=== PATIENT | male | born 1970 | race Two or more races ===

== ENCOUNTER 2024-12-16 10:38 | Emergency (ER) | payer MEDICAID, OTHER ==
[~2024-12-16] VITALS: Ht 182.9 cm; Wt 93.0 kg
--- NOTE | 2024-12-16 12:23 | DVH ---
EXAM: XY CHEST PORTABLE HISTORY: syncope COMPARISON: None TECHNIQUE: Portable AP views of the chest were performed. FINDINGS: No pneumothorax, consolidative infiltrates, or pulmonary edema. There is mild central perib ronchial thickening. The heart is not enlarged. There is moderate to severe thoracic degenerative dis c disease. No fractures are identified about the bony thorax. IMPRESSION: Mild reactive airways disease. The lungs are otherwise clear.
[2024-12-16 12:36] LABS: Basophils # (auto) 0 10 ^3/uL (0-0.2); Basophils % (auto) 0.1 % (0.0-2.0); Eosinophils # (auto) 0 10 ^3/uL (0-0.8); Hematocrit 45.2 % (41.0-53.0); Hemoglobin 15.5 g/dL (13.5-17.5); Lymphocytes # (auto) 0.7 10 ^3/uL (0.4-5.4); Lymphocytes % (auto) 7.8 % (10.0-50.0); Mean Corpuscular Hemoglobin 30.8 pg (28.0-32.0); Mean Corpuscular Hgb Conc. 34.3 g/dL (32.0-36.0); Mean Corpuscular Volume 89.8 fL (80.0-100.0); Monocytes # (auto) 0.5 10 ^3/uL (0-1.3); Monocytes % (auto) 5.2 % (0.0-12.0); Neutrophils # (auto) 7.7 10 ^3/uL (1.6-8.6); Neutrophils % (auto) 86.9 % (37.0-80.0); Nucleated Red Blood Cells % 0.1 %; Platelet Count (auto) 214 10^3/uL (140-450); Red Blood Cells 5.04 10^6/uL (4.5-5.90); Red Cell Distribution Width 12.9 % (11.8-14.3); White Blood Cell 8.8 10^3/uL (4.4-10.8)
[2024-12-16 12:40] VITALS: PULSE 89; RESP 16; O2SAT 96
[2024-12-16 12:43] LABS: Chloride 99 mmol/L (98-107); Potassium 4.1 mmol/L (3.5-5.1); Sodium 137 mmol/L (136-145)
[2024-12-16 12:44] LABS: Anion Gap 9 (5-15); Calcium 10.3 mg/dL (8.7-10.4); Carbon Dioxide 29 mmol/L (20-31)
--- NOTE | 2024-12-16 12:45 | DVH ---
EXAM: CT HEAD WITHOUT CONTRAST HISTORY: syncope COMPARISON: None TECHNIQUE: Axial images were obtained and reformatted in coronal and sagittal planes. All CT scans at this medical facility are performed using dose modulation techniques as appropriate t o a performed exam including the following: Automated exposure control was utilized; adjustment of th e MA and/or KV according to patient size; and use of iterative reconstruction technique. CT Dose: CTDI volume is 53 mGy. Dose-length product is 864 mGy*cm FINDINGS: Supratentorial Region: No evidence for large acute territorial ischemia. No intracranial hemorrhage is noted. Posterior Fossa: No acute abnormality. Brainstem: Unremarkable. Sellar/Suprasellar Region: Unremarkable. Ventricles, Cisterns, Sulci: Severely dilated occipital horn of the right lateral ventricle. The 3rd ventricle is mildly distended. A 5 x 2.5 cm porencephalic arachnoid cyst noted in the left frontal p arasagittal region. Corpus callosum is absent. Orbits: Unremarkable. Paranasal Sinuses: Unremarkable. Mastoid Air Cells: Unremarkable. Vasculature: Unremarkable. Bones/Soft Tissues: No acute abnormality. Other: None. IMPRESSION: 1. No acute intracranial process. 2. 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
[2024-12-16 12:49] LABS: Blood Urea Nitrogen 10 mg/dL (9-23)
[2024-12-16 12:52] LABS: Glucose 326 mg/dL (74-106)
[2024-12-16 13:00] LABS: Urine Bacteria None Seen /hpf (None Seen)
[2024-12-16 13:12] LABS: Urine Blood Negative /uL (Negative); Urine Clarity Turbid (Clear); Urine Color Orange (Yellow); Urine Hyaline Cast MANY /lpf (0 - 2); Urine Mucus MODERATE (None Seen); Urine Protein, UAD 2+ (Negative); Urine Specific Gravity 1.037 (1.001-1.035); Urine Squamous Epithelial Cell FEW /hpf (<5); Urine Urobilinogen 4 mg/dL (Negative); Urine WBC 5 /HPF (0-3); Urine pH 5.5 (5.0-9.0)
--- NOTE | 2024-12-16 14:40 | ED.PDOC ---
HPI (NEURO) HPI Comments 54y M who presents to the ED for chief complaint of near syncope. Pt states he was using restroom earlier this afternoon and states he got up after his bowel movement and states he felt weak and lightheaded and felt he was going to pass out. Pt states he had was able to catch himself from passing out and afterwards told his spouse who told him to come to the ED for further evaluation. Pt states in the ED, he had 2 packets of oatmeal today and afterwards had to use restroom. Pt states he felt abdominal discomfort after eating, which prompted him to try to use the bathroom to have a bowel movement, during which he was straining. PT now in the ED, is alert and oriented x 4 and able to answer all questions. Pt denies nausea, vomiting, diarrhea, fever, chills, cough, headache, dizziness, chest pain or shortness of breath. Pt states now in the ED, he has had this near syncopal in AUG 2024 but states was dealing with norovirus at time. Pt states he otherwise has noted history of DM, epilepsy and states due to insurance problems he has been noncompliant with his DM Meds. Pt states he had EKG done earlier this week and also had brain MRI scheduled for tomorrow. Pt states he has history of brain cysts and epilepsy since childhood but states no interventions have been done. Pt states he has neurology and PCP appt January 2025 to help re establish care for his epilepsy and DM. Pt otherwise denies any other symptoms at this time. Chief Complaint: Syncope Time Seen by MD: 14:36 Primary Care Provider: ? Reviewed Notes: Medications, Allergies Information Source: Patient Mode of Arrival: Ambulatory Brought in by: self Past Medical History PAST MEDICAL HISTORY: DM, Seizures Past Medical History (Other): brain cyst Surgical History: Denies all surgeries Family History Family History: Reviewed,noncontributory to illness Social History Smoker: Non-Smoker Alcohol: Denies ETOH Use Drugs: Denies Drug Use Lives In: Home Constitutional: reports: malaise, weakness; denies: chills, diaphoresis, fatigue, fever, sweats, others EENTM: denies: blurred vision, double vision, ear bleeding, ear discharge, ear drainage, ear pain, ear ringing, eye pain, eye redness, hearing loss, mouth pain, mouth swelling, nasal discharge, nose bleeding, nose congestion, nose pain, photophobia, tearing, throat pain, throat swelling, voice changes, others Respiratory: denies: cough, hemoptysis, orthopnea, SOB at rest, shortness of breath, SOB with excertion, stridor, wheezing, others Cardiovascular: denies: chest pain, dizzy spells, diaphoresis, Dyspnea on exertion, edema, irregular heart beat, left arm pain, lightheadedness, palpitations, PND, syncope, others Gastrointestinal: reports: abdominal pain; denies: abdomen distended, blood streaked bowels, constipated, diarrhea, dysphagia, difficulty swallowing, hematemesis, melena, nausea, poor appetite, poor fluid intake, rectal bleeding, rectal pain, vomiting, others Genitourinary: denies: burning, dysuria, flank pain, frequency, hematuria, incontinence, penile discharge, penile sore, pain, testicle pain, testicle swelling, urgency, others Neurological: reports: others (near syncope); denies: dizziness, fainting, headache, left sided numbness, left sided weakness, numbness, paresthesia, pre- existing deficit, right sided numbness, right sided weakness, seizure, speech problems, tingling, tremors, weakness Musculoskeletal: denies: back pain, gout, joint pain, joint swelling, muscle pain, muscle stiffness, neck pain, others Integumetry: denies: bruises, change in color, change in hair/nails, dryness, laceration, lesions, lumps, rash, wounds, others Allergic/Immunocompromised: denies: Difficulty Healing, Frequent Infections, Hives, Itching, others Hematologic/Lymphatic: denies: anemia, blood clots, easy bleeding, easy bruising, swollen glands, others Endocrine: denies: excessive hunger, excessive sweating, excessive thirst, excessive urination, flushing, intolerance to cold, intolerance to heat, unexplained weight gain, unexplained weight loss, others Psychiatric: denies: anxiety, bipolar disorder, depression, hopeless, panic disorder, schizophrenia, sleepless, suicidal, others All Other Systems: Reviewed and Negative Physical Exam General Appearance: No Apparent Distress HEENT: PERRL/EOMI, Other (No facial asymmetry) Neck: Full Range of Motion, Normal Inspection Respiratory: Lungs Clear, No Accessory Muscle Use, No Respiratory Distress, Normal Breath Sounds Cardiovascular: No Edema, No JVD, Regular Rate/Rhythm Breast Exam: Deferred Gastrointestinal: Non Tender, Soft Genitalia: Deferred Pelvic: Deferred Rectal: Deferred Extremities: Normal inspection, Normal range of motion, Non-tender, No pedal edema Neurologic: Alert (Oriented x4), Normal Affect, Normal Mood, Other (Ambulatory without difficulty. No gross focal deficit.) Cerebellar Function: NOT DONE Reflexes: NOT DONE Skin: Dry, Normal Color, Warm Lymphatic: NOT DONE EKG EKG : Comments Sinus rhythm, rate 83, normal intervals, normal axis, normal QRS, no ST/T changes. Was a procedure done? Was a procedure done?: No Differential Diagnosis (SZ) Seizure: Anticonvulsant Withdrawl, Hypocalcemia, Hypoglycemia, Hyponatremia, Hypoxemia, Mass Lesion, Encephalopathy General Weakness: Anemia, Dehydration, Dysrhythmia, Electrolyte imbalance, Encephalopathy, Hypoglycemia, TIA, Other (uncontrolled DM, vasovagal response, ) Headache: Migraine, Sinusitis, Trigeminal Neuralgia X-Ray, Labs, Meds, VS Vital Signs Date Time Temp Pulse Resp B/P (MAP) Pulse Ox O2 Delivery O2 Flow Rate FiO2 12/16/24 15:10 98.7 88 17 143/93 (110) 97 98.7 12/16/24 15:10 88 12/16/24 12:40 89 16 96 Room Air* 0 21 12/16/24 12:38 98.2 79 14 149/80 (103) 97 98.2 12/16/24 11:14 83 12/16/24 10:56 98.2 90 18 126/70 (88) 98 Lab Test 12/16/24 14:27 12/16/24 12:17 12/16/24 11:05 12/16/24 11:04 Range/Units Troponin I High Sensitivity < 3 L < 3 L </=54 ng/L White Blood Count 8.8 4.4-10.8 10^3/uL Red Blood Count 5.04 4.5-5.90 10^6/uL Hemoglobin 15.5 13.5-17.5 g/dL Hematocrit 45.2 41.0-53.0 % Mean Corpuscular Volume 89.8 80.0-100.0 fL Mean Corpuscular Hemoglobin 30.8 28.0-32.0 pg Mean Corpuscular Hemoglobin Concent 34.3 32.0-36.0 g/dL Red Cell Distribution Width 12.9 11.8-14.3 % Platelet Count 214 140-450 10^3/uL Mean Platelet Volume 8.9 6.9-10.8 fL Neutrophils (%) (Auto) 86.9 H 37.0-80.0 % Lymphocytes (%) (Auto) 7.8 L 10.0-50.0 % Monocytes (%) (Auto) 5.2 0.0-12.0 % Eosinophils (%) (Auto) 0.0 0.0-7.0 % Basophils (%) (Auto) 0.1 0.0-2.0 % Neutrophils # (Auto) 7.7 1.6-8.6 10 ^3/uL Lymphocytes # (Auto) 0.7 0.4-5.4 10 ^3/uL Monocytes # (Auto) 0.5 0-1.3 10 ^3/uL Eosinophils # (Auto) 0 0-0.8 10 ^3/uL Basophils # (Auto) 0 0-0.2 10 ^3/uL Nucleated Red Blood Cells 0.1 % Sodium Level 137 136-145 mmol/L Potassium Level 4.1 3.5-5.1 mmol/L Chloride Level 99 98-107 mmol/L Carbon Dioxide Level 29 20-31 mmol/L Anion Gap 9 5-15 Blood Urea Nitrogen 10 9-23 mg/dL Creatinine 1.11 0.700-1.30 mg/dL Glomerular Filtration Rate Calc 79 >90 mL/min BUN/Creatinine Ratio 9.0 L 10.0-20.0 Serum Glucose 326 H 74-106 mg/dL Calcium Level 10.3 8.7-10.4 mg/dL B-Type Natriuretic Peptide 16.31 0-100 pg/mL Urine Color [place] H Yellow Urine Clarity Turbid H Clear Urine pH 5.5 5.0-9.0 Urine Specific [place] 1.037 H 1.001-1.035 Urine Protein 2+ H Negative Urine Ketones Trace Negative Urine Blood Negative Negative /uL Urine Nitrite Negative Negative Urine Bilirubin 1+ Negative Urine Urobilinogen 4 H Negative mg/dL Urine Leukocyte Esterase Negative Negative /uL Urine RBC 3 0 - 3 /hpf Urine Microscopic WBC 5 H 0-3 /HPF Urine Squamous Epithelial Cells Few <5 /hpf Urine Bacteria None seen None Seen /hpf Urine Hyaline Casts Many 0 - 2 /lpf Urine Mucus Moderate None Seen Urine Glucose 3+ H Normal mg/dL POC Glucose 287 H 70-106 mg/dl [place] [id number] Ph: [phone] DIAGNOSTIC IMAGING Diagnostic Imaging Report : [id number] Signed PATIENT: PEPE GRIMALDOCCT: [id number] UNIT: [id number] : 1970 LOC: ER ROOM / BED: / AGE / SEX: 54 / M ADM STATUS: REG ER SERVICE 1153 ORDERING PHYSICIAN: BEVERLY LAM MD PROCEDURE(s): HWOCT - HEAD WITHOUT CONTRAST REASON: syncope ORDER NUMBER(s): [id number], ACCESSION NUMBER(s): [id number] EXAM: CT HEAD WITHOUT CONTRAST HISTORY: syncope COMPARISON: None TECHNIQUE: Axial images were obtained and reformatted in coronal and sagittal planes. All CT scans at this medical facility are performed using dose modulation t echniques as appropriate to a performed exam including the following: Automated exposure control was utilized; adjustment of the MA and/or KV according to patient size; and use of iterative reconstruction technique. CT Dose: CTDI volume is 53 mGy. Dose-length product is 864 mGy*cm FINDINGS: Supratentorial Region: No evidence for large acute territorial ischemia. No intracranial hemorrhage is noted. Posterior Fossa: No acute abnormality. Brainstem: Unremarkable. Sellar/Suprasellar Region: Unremarkable. Ventricles, Cisterns, Sulci: Severely dilated occipital horn of the right lateral ventricle. The 3rd ventricle is mildly distended. A 5 x 2.5 cm porencephalic arachnoid cyst noted in the left frontal parasagittal region. Corpus callosum is absent. Orbits: Unremarkable. Paranasal Sinuses: Unremarkable. Mastoid Air Cells: Unremarkable. Vasculature: Unremarkable. Bones/Soft Tissues: No acute abnormality. Other: None. IMPRESSION: 1. No acute intracranial process. 2. 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 ATED BY: ZAYNAB HAMMOND MD DICTATED DATE/TIME: 12/16/24 1242 SIGNED BY: ZAYNAB HAMMOND MD SIGNED DATE/TIME: 12/16/24 1242 CC: [place] [id number] Ph: [phone] DIAGNOSTIC IMAGING Diagnostic Imaging Report : [id number] Signed PATIENT: PEPE GRIMALDOCCT: [id number] UNIT: [id number] : 1970 LOC: ER ROOM / BED: / AGE / SEX: 54 / M ADM STATUS: REG ER SERVICE 1153 ORDERING PHYSICIAN: BEVERLY LAM MD PROCEDURE(s): CXRP - CHEST PORTABLE REASON: syncope ORDER NUMBER(s): [id number], ACCESSION NUMBER(s): [id number] EXAM: XY CHEST PORTABLE HISTORY: syncope COMPARISON: None TECHNIQUE: Portable AP views of the chest were performed. FINDINGS: No pneumothorax, consolidative infiltrates, or pulmonary edema. There is mild central peribronchial thickening. The heart is not enlarged. There is moderate to severe thoracic degenerative disc disease. No fractures are identified about the bony thorax. IMPRESSION: Mild reactive airways disease. The lungs are otherwise clear. ATED BY: BARBARA DAMON MD DICTATED DATE/TIME: 12/16/24 1220 SIGNED BY: BARBARA DAMON MD SIGNED DATE/TIME: 12/16/24 1220 CC: X-Ray, Labs, Meds, VS Comment 54-year-old male with a history of untreated diabetes and epilepsy presenting after a near syncopal episode after having a bowel movement and standing up rapidly Vitals unremarkable Exam unremarkable Rhythm strip independently interpreted by me: Sinus rhythm, rate 83, no ectopy. CT head IMPRESSION: 1. No acute intracranial process. 2. 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 Chest X-ray IMPRESSION: Mild reactive airways disease. The lungs are otherwise clear. CBC unremarkable, metabolic panel remarkable for glucose 326, UA positive for protein, ketones, bilirubin, white cells, mucus and glucose, no bacteria, likely represents volume contraction Patient declined any treatment in the ED including pain medication or IV fluids. He states that the blood glucose reading is typical for him, since he is not on any antidiabetic medications. He was offered hospital admission for brain MRI as an inpatient and neurology evaluation, however he declined stating he feels back to his baseline neurologic status, and would prefer to be discharged home and follow-up with his neurologist as scheduled. Patient appears stable for discharge with close outpatient follow-up at this time. Time of 1ST Reevaluation: 15:10 Reevaluation 1ST: Unchanged Patient Education/Counseling: Diagnosis, Treatment Family Education/Counseling: No Family Present Additional Information -Reviewed patient's previous visit(s): - The following tests were ordered, and results were reviewed by me: trop x 2, cbc, bnp, chest x-ray, ua, bmp, ekg x1, ct head w/o contrast, - Additional information was gathered from interviewing the following jocelynnen dent Historian: patient - I reviewed and agreed with the following test results read by other provider: radiologist - I discussed treatments and results with medical personnel and: patient Comprehensive systems review obtained and negative except for what is stated in the HPI. Departure 1 Departure Time of Disposition: 11:49 Impression: Primary Impression: Vasovagal syncope Additional Impression: Hyperglycemia Disposition: 01 HOME / SELF CARE / HOMELESS Condition: Stable Additional Instructions: Your blood tests showed high blood glucose. Your CT report abnormal. I have provided a copy of the report. Your chest x-ray was unremarkable. Follow-up with your neurologist your primary physician as soon as possible. Discharged With: Relative Critical Care Note Critical Care Time?: No Stability Stability form required: No Heart Score Heart Score: Heart Score Response (Comments) Value History N/A 0 EKG N/A 0 Age N/A 0 Risk Factors N/A 0 Troponin N/A 0 Total 0 I personally scribed for BEVERLY LAM MD ([email or web address]) on 12/16/24 at 14 :40. Electronically submitted by Camilo Metcalf ([email or web address]). BEVERLY LAM MD Dec 16, 2024 14:40
[2024-12-16 15:10] VITALS: BP 143/93; PULSE 88; RESP 17; TEMP 98.7; O2SAT 97
--- NOTE | 2024-12-17 13:46 | ECG ---
[facility]– [place] Test Date: 2024-12-16 Test Time: 11:14:47 Pat Name: PEPE GRIMALDO Department: ED Room: Gender: M Urology Teacher: : 1970 Requested By: BEVERLY HENDRICKSON Order Number: [id number] Reading MD: Eric Rollins Measurements Intervals [place] Rate: 83 P: 70 IA: 174 QRS: 20 QRSD: 111 T: 32 QT: 379 QTc: 446 Interpretive Statements Sinus rhythm Low voltage, extremity leads Electronically Signed On 12-18-2024 19:10:43 PDT by Eric Rollins Please click the below link to view image of tracing.
== END 2024-12-16 15:13 | disposition home or self-care (01) ==
LOC: ER 10:38
DX: R55 Syncope and collapse (principal); E11.65 Type 2 diabetes mellitus with hyperglycemia
CPT/HCPCS: 36415; 70450; 71045; 80048; 81001; 82962; 83880; 84484; 85025; 93005